=== PATIENT | male | born 1950 | race Caucasian/White ===

== ENCOUNTER 2017-06-06 20:45 | Emergency (ER) | payer OTHER ==
[~2017-06-06] VITALS: Ht 175.3 cm; Wt 88.5 kg
[2017-06-06 20:45] VITALS: BP_SYST 125
[2017-06-06 23:45] VITALS: BP_SYST 125
== END 2017-06-06 23:45 | disposition home or self-care (01) ==
LOC: SED 20:45
DX: B02.9 Zoster without complications (principal); K21.9 Gastro-esophageal reflux disease without esophagitis
CPT/HCPCS: 99283